=== PATIENT | male | born 1970 | race Hispanic/Latino ===

== ENCOUNTER → 2023-06-22 07:55 | Outpatient (REF) | payer OTHER, SELFPAY ==
[2023-06-22 09:02] LABS: ALT (SGPT) 31 U/L (0-50); AST (SGOT) 33 U/L (17-59); Albumin 4.7 g/dl (3.5-5.0); Alkaline Phosphatase 91 U/L (38-126); Blood Urea Nitrogen 10 mg/dl (9-20); Calcium 10.1 mg/dl (8.4-10.2); Carbon Dioxide 23 mmol/L (22-30); Chloride 105 mmol/L (98-107); Glucose 100 mg/dl (70-99); HDL Cholesterol 73 mg/dl; LDL Cholesterol, Calculated 146 mg/dl; Potassium 4.2 mmol/L (3.5-5.1); Sodium 137 mmol/L (135-145); Total Bilirubin 0.9 mg/dl (0.2-1.3); Total Cholesterol 244 mg/dl (50-199); Total Protein 7.4 g/dl (6.3-8.2); Triglyceride 125 mg/dl (10-149); Very Low Density Lipoprotein 25 mg/dl (0-30); eGFR > 60.00
[2023-06-22 10:34] LABS: Glycohemoglobin (HgbA1c) 5.9 % (4.0-5.6)
== END ==
LOC: CLINIC 07:55
PROVIDERS: ATTENDING PHYSICIAN Nurse Practitioner Adult Health
DX: E11.9 Type 2 diabetes mellitus without complications (principal); E78.2 Mixed hyperlipidemia
CPT/HCPCS: 36415; 80053; 80061; 83036

== ENCOUNTER → 2023-10-19 07:27 | Outpatient (REF) | payer OTHER, SELFPAY ==
[2023-10-19 09:15] LABS: Glycohemoglobin (HgbA1c) 5.9 % (4.0-5.6)
[2023-10-19 10:32] LABS: ALT (SGPT) 24 U/L (0-50); AST (SGOT) 29 U/L (17-59); Albumin 4.6 g/dl (3.5-5.0); Alkaline Phosphatase 97 U/L (38-126); Blood Urea Nitrogen 13 mg/dl (9-20); Calcium 9.6 mg/dl (8.4-10.2); Carbon Dioxide 21 mmol/L (22-30); Chloride 106 mmol/L (98-107); Glucose 90 mg/dl (70-99); HDL Cholesterol 61 mg/dl; LDL Cholesterol, Calculated 153 mg/dl; Potassium 4.2 mmol/L (3.5-5.1); Sodium 138 mmol/L (135-145); Total Bilirubin 0.8 mg/dl (0.2-1.3); Total Cholesterol 244 mg/dl (50-199); Total Protein 6.9 g/dl (6.3-8.2); Triglyceride 152 mg/dl (10-149); Very Low Density Lipoprotein 30 mg/dl (0-30); eGFR > 60.00
== END ==
LOC: CLINIC 07:27
PROVIDERS: ATTENDING PHYSICIAN Nurse Practitioner Adult Health
DX: R73.03 Prediabetes (principal); E78.2 Mixed hyperlipidemia
CPT/HCPCS: 36415; 80053; 80061; 83036

== ENCOUNTER → 2023-11-09 07:47 | Outpatient (REF) | payer OTHER, SELFPAY | LOC: RAD 07:47 | PROVIDERS: ATTENDING PHYSICIAN Surgery; FAMILY PHYSICIAN Nurse Practitioner Adult Health | DX: R10.9 Unspecified abdominal pain (principal); Z98.890 Other specified postprocedural states; Z87.19 Personal history of other diseases of the digestive system | CPT/HCPCS: 74176 ==

== ENCOUNTER 2024-04-02 06:25 | Day surgery (SDC) | payer OTHER, SELFPAY ==
[2024-04-02] VITALS (8 sets, daily range): BP systolic 114–143; BP diastolic 76–88; BMI 25.4
[2024-04-02] MEDS: TYLENOL 1000 MG PO (10:44)
[2024-04-02] MEDS: NORMOSOL-R/PLASMALYTE-A 1000 IV (10:44)
--- NOTE | 2024-04-02 10:58 | W.SUR.PREOP ---
Pre-Operative Surgical Note
-
I have examined this patient prior to the performance of the scheduled procedure.
The patient's condition is unchanged from the time of the current History and
Physical and the patient is able to undergo the scheduled procedure.
--- NOTE | 2024-04-02 10:58 | HP.FOC2 ---
Focused History & Physical
Chief Complaint
HPI:
Chief Complaint:
Left groin pain
HPI / Indication for Planned Procedure:
This is a 53-year-old male status post robotic left inguinal hernia repair with mesh with likely retained cord lipoma and left groin pain. Will plan for open excision recurrent left inguinal hernia repair and neurectomy.
I reviewed the operative plan and postoperative care with the family and patient with the help of a science interpreter #[id number]
Relevant Past Medical History: Negative
Relevant Social History: Negative
Relevant Family History: Negative
Relevant Past Surgical History: Positive for (Robotic left inguinal hernia repair)
Review of Systems
Review of Pertinent Systems: All Systems Negative
Medication
See Medication form for detailed medications: Yes
Medication List (including Herbals & OTC):
ibuprofen 200 mg tablet 400 mg PO Q6H PRN Pain 04/01/24
Medications Reviewed: Yes
Allergies and Reactions
Patient has Allergies: No
Noted Allergies and Reactions:
Allergy/AdvReac Type Severity Reaction Status Date / Time
No Known Allergies Allergy Verified 04/02/24 10:18
Pertinent Physical Exam
All Other Systems: Negative
Head/Neck: Normal
Diagnosis / Assessment
53-year-old male with a recurrent left inguinal hernia (retained cord lipoma) and groin pain ill plan for open excision recurrent left inguinal hernia repair and neurectomy
Plan / Procedure
Will plan for open excision recurrent left inguinal hernia repair and neurectomy
Anesthesia/Sedation to be done by Anesthesia Provider: Yes
--- NOTE | 2024-04-02 13:16 | W.IMMPOSTOP ---
Surgical Immed Post Op Note
-
Primary Surgeon: Juan Manuel Molina MD
Assisting Surgeon: Jaime Napier MD
Pre-op Diagnosis: Recurrent left inguinal hernia, left groin pain
Post-op Diagnosis: Same
Procedure Performed:
1. Open recurrent left inguinal hernia repair
2. Left inguinal neurectomy
Anesthesia Type: General
Specimen / Cultures:
1. Cord lipoma
2. Inguinal nerve
Estimated Blood Loss: 7 cc
Complications: [None]
Operative Findings: No direct or indirect defects. Large cord lipoma was identified, isolated off of the spermatic cord and resected near the deep ring. The ilioinguinal nerve was identified and ligated at its exit point laterally from the muscle.
No mesh was used.
--- NOTE | 2024-04-02 13:29 | OR.RPT ---
Operative Report
Operative Report
Patient Name: Harjeet Yusuf
: 1970
Date of Operation: 04/02/2024
Preoperative Diagnosis: Recurrent left inguinal hernia
Postoperative Diagnosis: Same
Procedure(s):
Open left recurrent inguinal Hernia Repair
Surgeon(s):
Dr. Juan Manuel Molina
Operations Intern(s):
Dr. Jaime Napier (PGY 1)
Anesthesia: General
Estimated Blood Loss: 7 cc
Urine Output: None
Drains/Lines/Implants: None
Specimens:
1. Cord lipoma
2. Left inguinal nerve
Indication for surgery: This is a 53-year-old Sami-speaking male who had a fairly uneventful robotic left inguinal hernia repair with mesh last year. He soon began to develop left lower quadrant pain and was found to have residual cord lipoma.
Following review of therapeutic options he elected to undergo an open repair
Operative Findings: No direct or indirect defects. Large cord lipoma was identified, isolated off of the cord structures and resected near the deep ring. The ilioinguinal nerve was identified and ligated at its exit point laterally from the
muscle. No mesh was used.
Details of the operation:
After induction of general anesthesia, the patient was clipped, prepped and draped in the supine position. A team timeout was performed confirming administration of DVT prophylaxis, IV antibiotics and SCDs. The ASIS and pubic tubercle were marked
and an incision was chosen along the course of a skin line. The skin was anesthetized with Lidocaine. An incision was made through the skin line and dissection carried down through subcutaneous tissue and Adela's fascia. The superficial epigastric
vein was identified and ligated. A Small Warner wound retractor was used to provide exposure. The external oblique fibers were then divided in the direction of travel. The ilioinguinal nerve was identified and resected. Dissection was carried down
to the floor, which revealed the following:
No indirect or direct defects. A large cord lipoma was identified and dissected to the deep ring where it was ligated between Vicryl ties, and removed.
There is no hernia defect was identified and the patient already had a prior robotic repair with mesh no mesh was placed for this surgery. The external oblique fibers were then closed using a running 2-0 Vicryl suture. Adela's fascia was then
closed with interrupted 3-0 Vicryl suture. The skin was closed in layers with interrupted 3-0 vicryl deep dermals followed by a running subcuticular 4-0 Monocryl followed by dermabond. The patient returned to the Recovery Room in stable condition.
Sponge and instrument counts were correct. No specimens sent to Pathology.
I was the attending physician and performed the procedure with assistance from the resident above . I was present for all portions of the case, excluding skin closure.
Juan Manuel Molina MD
== END 2024-04-02 14:45 | disposition home or self-care (01) ==
LOC: SDS 06:25
PROVIDERS: ATTENDING PHYSICIAN Surgery
DX: K40.91 Unilateral inguinal hernia, without obstruction or gangrene, recurrent (principal); D17.6 Benign lipomatous neoplasm of spermatic cord
CPT/HCPCS: 49520; 88304; 88305

== ENCOUNTER → 2024-07-25 07:18 | Outpatient (REF) | payer OTHER, SELFPAY ==
[2024-07-25 08:18] LABS: Blood Urea Nitrogen 15 mg/dl (9-20); Calcium 9.7 mg/dl (8.4-10.2); Carbon Dioxide 24 mmol/L (22-30); Chloride 110 mmol/L (98-107); Glucose 101 mg/dl (70-99); Potassium 4.4 mmol/L (3.5-5.1); Sodium 141 mmol/L (135-145); eGFR > 60.00
[2024-07-25 08:35] LABS: Vitamin D, 25-OH*** 43.5 ng/mL (30-80)
[2024-07-25 15:00] LABS: Glycohemoglobin (HgbA1c) 5.8 % (4.0-5.6)
== END ==
LOC: CLINIC 07:18
PROVIDERS: ATTENDING PHYSICIAN Nurse Practitioner Adult Health
DX: R73.03 Prediabetes (principal); E55.9 Vitamin D deficiency, unspecified
CPT/HCPCS: 36415; 80048; 82306; 83036

== ENCOUNTER → 2025-02-02 06:24 | Outpatient (REF) | payer OTHER, SELFPAY ==
[2025-02-02 07:26] LABS: Hematocrit 46.8 % (39.0-52.0); Hemoglobin 15.5 g/dL (13.0-18.0); Mean Corp Hgb Conc. 33.1 g/dL (33.0-37.0); Mean Corpuscular Volume 85.9 fL (80.0-94.0); Platelet Count 277 10^3/uL (130-400); Red Cell Dist. Width 12.8 % (11.5-14.5)
[2025-02-02 08:03] LABS: ALT (SGPT) 27 U/L (0-50); AST (SGOT) 23 U/L (17-59); Alkaline Phosphatase 78 U/L (38-126); Blood Urea Nitrogen 14 mg/dl (9-20); Calcium 9.1 mg/dl (8.4-10.2); Carbon Dioxide 26 mmol/L (22-30); Chloride 104 mmol/L (98-107); Glucose 98 mg/dl (70-99); HDL Cholesterol 53 mg/dl; LDL Cholesterol, Calculated 122 mg/dl; Potassium 4.4 mmol/L (3.5-5.1); Sodium 138 mmol/L (135-145); Total Protein 7.1 g/dl (6.3-8.2); Very Low Density Lipoprotein 47 mg/dl (0-30); eGFR > 60.00
[2025-02-02 08:12] LABS: Albumin 4.5 g/dl (3.5-5.0)
[2025-02-02 08:35] LABS: Glycohemoglobin (HgbA1c) 6.0 % (4.0-5.9)
== END ==
LOC: CLINIC 06:24
PROVIDERS: ATTENDING PHYSICIAN Nurse Practitioner Adult Health
DX: E78.2 Mixed hyperlipidemia (principal); R73.03 Prediabetes; Z12.11 Encounter for screening for malignant neoplasm of colon
CPT/HCPCS: 36415; 80053; 80061; 83036; 85027

== ENCOUNTER → 2025-02-04 13:29 | Outpatient (REF) | payer OTHER, SELFPAY | LOC: CLINIC 13:29 | PROVIDERS: ATTENDING PHYSICIAN Nurse Practitioner Adult Health | DX: E78.2 Mixed hyperlipidemia (principal); Z12.11 Encounter for screening for malignant neoplasm of colon; R73.03 Prediabetes | CPT/HCPCS: 83520 ==